=== PATIENT | female | born 1935 | race Caucasian/White ===

== ENCOUNTER 2016-12-10 13:43 | Observation (INO) ==
[2016-12-10] MEDS ORDERED: Acetaminophen 325 MG TABLET PO ONE (14:24)
--- NOTE | 2016-12-10 14:49 | Emergency Department Note ---
Disposition Clinical Impression: Leg pain, left, Inability to ambulate due to left hip Disposition: Admitted As Inpatient Condition: Good Referrals: Cathi Curran CNP [Primary Care Provider] - Forms: ED Satisfaction Letter Time of Disposition: 18:20 Lower Extremity Injury HPI - General Chief Complaint: ED Extremity Injury, Lower Stated Complaint: leg pain Time Seen by Provider: 12/10/16 13:50 Source: patient, family, EMS Mode of arrival: ambulatory Limitations: no limitations Nursing Notes Reviewed: Yes Vital Signs Reviewed: Yes - History of Present Illness HPI Narrative: History from daughter and patient. Patient indicates that she thinks that she had some pain one month ago after seeing the commodity supervisor. Apparently they clipped her toes. Patient thinks that she was moved into some positions that her left knee which is [id number] in her left hip could not handle and she has had pain since then. 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 Daughter states that evening she noticed that the left great toe was swollen. Daughter states that she thought that her mother had gout since the daughter gave her naproxen of her own Saturday and Saturday and prednisone Saturday and Saturday 15 mg. Patient did not improve. As a matter fact got worse. Daughter became concerned because she has had a DVT in the past contacted the primary physician who sent her here for a Doppler patient has not had any associated fevers, chilling, nausea, chest pain, or palpitations. She occasionally gets short of breath but it has not been significantly worse Injury location: Left hip, Left thigh, Left knee Onset (ago): unknown (No known injury or fall) Mechanism of Injury: unknown Place: home Pain Severity: moderate Improves with: rest Worsens with: weight bearing (Patient was unable to weight-bear at all today which is why [facility] was called to transport her), movement, palpation Associated symptoms: Reports: unable to bear weight Treatments prior to arrival: cold therapy, NSAIDS, other (Steroids) - Related Data Home Medications Medication Instructions Recorded Confirmed Unable To Obtain [Unable to Obtain] 04/16/16 04/16/16 Allergies Allergy/AdvReac Type Severity Reaction Status Date / Time Penicillins [PCN] Allergy Anaphylaxis Verified 04/16/16 19:43 Sulfa (Sulfonamide Allergy See Verified 04/16/16 19:43 Antibiotics) Comments All systems ED: reviewed and negative except as stated. Musculoskeletal: Reports: as per HPI, arthralgia Past Medical History - Past Medical History Medical history: Reports: hypertension, renal disease Psychiatric history: Reports: no psych history - Social History Smoking Status: Never smoker Alcohol use: Reports: none Drug use: Reports: none Physical Exam Constitutional: Patient is oriented to person, place, and time. Skin color is pink. Appears well hydrated, body habitus obese . Non toxic appearing. Head: Normocephalic and atraumatic. External ear exam normal Nose: Nose normal. Mouth/Throat: Uvula is midline, oropharynx is clear and moist and mucous membranes are normal. Eyes: Conjunctivae nl, extraocular motions and lids are normal. Pupils are equal , round, and reactive to light. Neck: Normal range of motion and phonation normal. Neck supple. Cardiovascular: Normal rate, regular rhythm, normal heart sounds. Pulmonary/Chest: No Respiratory distress. Respiratory Effort normal and breath sounds clear. Abdominal: Soft. Normal appearance and bowel sounds are normal. no tenderness, no masses, no guarding, no rebound Musculoskeletal: Good distal pulses. Soft compartments. Brisk cap refill. Extremities: Patient has tenderness to palpation diffusely over her left thigh left knee somewhat over her left hip but not well localized. Less so over her left ankle. Slightly tender over her left great toe. Left great toe is not erythematous or warm and there is very little swelling there There is no palpable cord or tenderness at the calf .Intact peripheral pulses. No significant distal Edema. Extremity skin color nl, Patient has extreme pain with any movement of her left leg. She is Pain with internal and external rotation at the hip. She can only flex her knee to about 15 degrees and it is extremely painful. Patient moans loudly with any movement of her left hip There is no swelling or erythema over the knee joint. Nontender over the ankle. Left foot is warm and capillary refill is quick. Dorsalis pedis pulses intact. Neurological: Patient is alert and oriented without evidence of obvious motor deficits Skin: Skin is warm, dry and intact. color is normal, cap refill is quick Psychiatric: Patient has normal mood and affect. Patient speech is normal and behavior is normal. Thought content normal. - General Limitations: no limitations General appearance: alert Course - Reevaluation(s) Reevaluation #1: Venous Doppler is available now and for this reason I have asked the nurses to hold off on the blood work and of ordered the Doppler to evaluate for VTE Time: 14:48 Reevaluation #2: Family states the patient cannot walk at all. Her daughter with whom she lives indicates that she has been able to walk with a walker until 3 days ago when this pain started. She states that she cannot take her home because she has no way to manage her because she cannot stand. This was tested at the bedside and the patient reports to much pain when she places any weight on the left leg. Plan will be for observation admission for therapy/rehabilitation Time: 16:52 Reevaluation #3: call again to dr Upton product management consultant hospitalist who has not responded to initial message one hr ago. Time: 17:55 - Consultations Consultation #1: Contacted Dr. Upton who called back. We discussed the patient's case and need for hospitalization. He agrees to accept the patient. We talked about orders which he would like me to enter admission orders as a courtesy. Specifically he requests [place] 5 325 one by mouth every 4-6, Solu-Medrol 125 initially and then 60 every 8 hours, Lovenox 30 units daily We talked about imaging and he requested a CT of the hip and requested that I order a CRP and ESR Time: 18:38 Vital Signs Temperature 98.2 F 12/10/16 13:51 Pulse Rate 60 12/10/16 13:51 Respiratory Rate 16 12/10/16 13:51 Blood Pressure 185/85 12/10/16 13:51 O2 Sat by Pulse Oximetry 98 12/10/16 13:51 Temperature 98.2 F 12/10/16 13:51 Pulse Rate 60 12/10/16 18:33 Respiratory Rate 18 12/10/16 18:33 Blood Pressure 138/101 12/10/16 18:33 O2 Sat by Pulse Oximetry 98 12/10/16 18:33 Oxygen Delivery Oxygen Delivery Room Air Extremity Injury, Lower - MDM Narrative Medical decision making narrative: pt cannot stand and severe pain - Medical Records Medical records reviewed: Yes I reviewed the patient's medical records. - Lab Data Lab results reviewed: Yes I reviewed the patient's lab results. Result diagrams: 12/10/16 17:00 12/10/16 17:00 Lab Results 12/10/16 12/10/16 12/10/16 Range/Units 17:00 17:00 17:00 WBC 6.1 (4.3-11.1) K/mcL RBC 3.89 (3.82-4.97) M/mcL Hgb 12.4 (11.5-15.4) g/dL Hct 36.4 (35.3-44.9) % MCV 93.6 (83.0-100.0) fL MCH 31.9 (28.0-33.3) pg MCHC 34.1 (31.6-35.5) g/dL RDW 13.8 (11.5-14.5) % Plt Count 156 (140-400) K/mcL MPV 11.5 (9.4-12.4) fL Immature Gran % 0.3 (0-4) % Seg Neutrophils % 66.1 % Lymphocytes % 24.1 % Monocytes % 8.6 % Eosinophils % 0.7 % Basophils % 0.2 % Neutrophils # 4.0 (1.6-8.9) K/mcL Lymphocytes # 1.5 (0.6-4.6) K/mcL Monocytes # 0.5 (0.0-1.3) K/mcL Eosinophils # 0.0 (0.0-0.6) K/mcL Basophils # 0.0 (0.0-0.2) K/mcL PT 11.4 (9.4-12.1) Seconds INR 1.1 Sodium 140 (136-145) mEq/L Potassium 3.8 (3.5-4.5) mEq/L Chloride 104 (98-109) mEq/L Carbon Dioxide 26 (19-29) mEq/L BUN 33 H (7-20) mg/dL Creatinine 1.07 (0.57-1.11) mg/dL Est GFR ( Amer) 59 L (> 60) Est GFR (Non-Af Amer) 49 L (> 60) BUN/Creatinine Ratio 31 H (6-26) Glucose 80 (70-99) mg/dL Calculated Osmolality 296 (280-300) Calcium 10.5 (8.6-10.8) mg/dL Total Bilirubin 0.6 (0.2-1.2) mg/dL AST 19 (5-34) Units/L ALT 13 (0-55) Units/L Alkaline Phosphatase 75 (38-126) Units/L Creatine Kinase 43 (29-168) Units/L Serum Total Protein 7.1 (6.0-8.3) g/dL Albumin 3.6 (3.5-5.0) g/dL Globulin 3.5 (2.4-3.5) g/dL Albumin/Globulin Ratio 1.0 L (1.1-2.2) - Radiology Data Radiology results reviewed: Yes I reviewed the patient's radiology results. Doppler tech tells me that the ultrasound of her left leg shows no evidence of DVT. Official report will be in the computer he says X-ray examination of the left hip per radiology impression "mild left hip osteoarthritis no acute fracture or dislocation pelvic ring is intact in the lower lumbar spine shows degenerative changes acute fracture X-ray of the knee shows impression no acute osseous abnormality, severe tricompartmental osteoarthritis. No acute fracture or dislocation present
[2016-12-10 17:05] LABS: Basophils % 0.2 %; Eosinophils % 0.7 %; Hematocrit 36.4 % (35.3-44.9); Hemoglobin 12.4 g/dL (11.5-15.4); Immature Granulocytes % 0.3 % (0-4); Lymphocytes # 1.5 K/mcL (0.6-4.6); Lymphocytes % 24.1 %; Mean Corpuscular HGB Conc 34.1 g/dL (31.6-35.5); Mean Corpuscular Hemoglobin 31.9 pg (28.0-33.3); Mean Corpuscular Volume 93.6 fL (83.0-100.0); Mean Platelet Volume 11.5 fL (9.4-12.4); Monocytes # 0.5 K/mcL (0.0-1.3); Monocytes % 8.6 %; Platelet Count 156 K/mcL (140-400); Red Blood Count 3.89 M/mcL (3.82-4.97); Red Cell Distribution Width 13.8 % (11.5-14.5); Segmented Neutrophils % 66.1 %
[2016-12-10 17:11] LABS: INR 1.1; Prothrombin Time 11.4 Seconds (9.4-12.1)
[2016-12-10 17:28] LABS: Albumin 3.6 g/dL (3.5-5.0); Bilirubin,Total 0.6 mg/dL (0.2-1.2); Calcium 10.5 mg/dL (8.6-10.8); Globulin 3.5 g/dL (2.4-3.5); Potassium 3.8 mEq/L (3.5-4.5); Total Protein 7.1 g/dL (6.0-8.3)
[2016-12-10] MEDS ORDERED: methylPREDNISolone 125 MG/2 ML VIAL IVP ONE (18:40)
[2016-12-10] MEDS ORDERED: *HR* HYDROcodone/Acet 5/325 mg TABLET PO PRN (21:41)
[2016-12-10] MEDS ORDERED: Naloxone 0.4 MG/ML INJ IVP PRN (21:41)
--- NOTE | 2016-12-10 22:35 | Venous Imaging Report ---
LE Venous Duplex Patient Name:Brooklyn Rivera Order Number:[id number] Procedure Date:12/10/2016 Date:4Age:81 yrs Gender:Female Location:[facility] ED Room #: 1 Dictionary Editor:Mattie Duque RVT Referring MD:Morelia Kirk MD:Robe Rodriguez MD , FACS Primary Indications:left lower extremity pain Secondary Indications: Risk Factors Yes/No Hx of DVT Yes Hx of Chemotherapy No Impressions: Left lower extremity: normal superficial and deep exam. Right lower extremity: normal contralateral exam. Recommendations: Critical findings reported to Physician in person by Mattie Duque RVT. Findings Venous Duplex Results: Right: Venous imaging of the lower extremity reveals full patency and normal vessel compressibility of the right common femoral. Doppler signals in the evaluated veins were normal. Left: Venous imaging of the lower extremity reveals full patency and normal vessel compressibility of the left distal iliac, left common femoral, left superficial femoral, left popliteal, left posterior tibial, left peroneal, left great saphenous and left lesser saphenous. Doppler signals in the evaluated veins were normal. Lower Extremity Venous Duplex Side Vein Compress Spontaneous Flow Augment Diameter (cm) Depth (cm) Left Distal Iliac Normal Yes Phasic Yes Left Common Femoral Normal Yes Phasic Yes Left Superficial Femoral Normal Yes Phasic Yes Left Popliteal Normal Yes Phasic Yes Left Posterior Tibial Normal Yes Phasic Yes Left Peroneal Normal Yes Phasic Yes Left Great Saphenous Normal Yes Phasic Yes Left Lesser Saphenous Normal Yes Phasic Yes Right Common Femoral Normal Yes Phasic Yes Updated by Robe Rodriguez MD, FACS on 12/10/2016 10:28:17 PM Robe Rodriguez MD electronically signed on 12/10/2016 10:28:34 PM with status of Final
[2016-12-11] MEDS: methylPREDNISolone 125 MG/2 ML VIAL IVP SCH ×5 (00:36→23:05)
[2016-12-11] MEDS: *HR* Enoxaparin 30 MG/0.3 ML SYRINGE SQ SCH (07:01)
--- NOTE | 2016-12-11 13:14 | Internal Med Progress Note ---
Date of Encounter: 12/11/16 Time of Encounter: 13:12 - Assessment and plan (1) Inability to ambulate due to left hip Current Visit: Yes Status: Acute Assessment and plan: Patient is feeling better today. But states that when she planted her foot bilateral upper leg into her hip. She may have been walking differently due to her recent podiatric surgery. I asked PT to consult regarding whether she is able to ambulate and maintain her balance and weight. - Time Spent With Patient less than 15 minutes - Subjective Interval history: Patient is better today. But she does have some pain when weightbearing L was unclear first if it is her feet in which she had a possible plan for removed and /or hip pain from degenerative joint disease. - Constitutional Vitals: Temp Pulse Resp BP Pulse Ox 97.6 F 62 16 163/80 94 12/11/16 11:08 12/11/16 11:08 12/11/16 11:08 12/11/16 11:08 12/11/16 11:08 - Head Head exam: Present: atraumatic, normal inspection, normocephalic - Neck Neck exam general surgery: Present: supple, trachea midline. Absent: lymphadenopathy - Respiratory Respiratory exam: Present: CTAB. Absent: accessory muscle use, rales, rhonchi, wheezes - Cardiovascular Cardiovascular exam: Present: RRR, +S1, +S2. Absent: diastolic murmur, gallop, rubs, systolic murmur Additional comments: Probably grade 2-3 over 4 systolic ejection murmur Internal Medicine: Result - Labs CBC & Chem 7: 12/10/16 17:00 12/10/16 17:00 Labs: Lab is stable - ABG Interpretation ABG results: PT/INR, D-dimer PT 11.4 Seconds (9.4-12.1) 12/10/16 17:00 Consult Discharge Plan - Plan Referrals: Cathi Curran GREENHOUSE FLORIST [Primary Care Provider] -
--- NOTE | 2016-12-11 13:18 | Internal Med History&Physical ---
Date of Encounter: 12/11/16 Time of Encounter: 13:15 Assessment and Plan (1) Inability to ambulate due to left hip Current visit: Yes Status: Acute (2) Leg pain, left Current visit: Yes Status: Acute Patient states the pains from referral with up to her hip joint. She does have degenerative changes on the x-rays. CT showed no fractures. Internal Medicine - H&P: HPI Chief complaint: Patient had some podiatric surgery and ever since then she has had pain las Admitted From: Emergency Dept History of present illness: Ms. Rivera is a 81 year old female . Patient is a little better than yesterday with steroid application and bed rest. PT consult is in. 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 - Constitutional Vitals: Temp Pulse Resp BP Pulse Ox 97.6 F 62 16 163/80 94 12/11/16 11:08 12/11/16 11:08 12/11/16 11:08 12/11/16 11:08 12/11/16 11:08 - Head Head exam: Present: atraumatic, normal inspection, normocephalic - Eye Eye exam: Present: PERRL, conjuntiva pink, sclera anicteric Pupils: Present: PERRL - Respiratory Respiratory exam: Present: CTAB. Absent: accessory muscle use, rales, rhonchi, wheezes - Cardiovascular Cardiovascular exam: Present: RRR, +S1, +S2. Absent: diastolic murmur, gallop, rubs, systolic murmur (Patient has a grade 2-3 systolic ejection murmur.) Internal Med - H&P Results - Labs CBC & Chem 7: 12/10/16 17:00 12/10/16 17:00
[2016-12-11 22:09] LABS: Uric Acid 6.6 mg/dL (2.6-6.0)
[2016-12-12] MEDS: methylPREDNISolone 125 MG/2 ML VIAL IVP SCH ×3 (06:00→17:35)
[2016-12-12] MEDS: *HR* Enoxaparin 30 MG/0.3 ML SYRINGE SQ SCH (06:01)
--- NOTE | 2016-12-12 14:53 | Internal Med Progress Note ---
Date of Encounter: 12/12/16 Time of Encounter: 14:51 - Assessment and plan (1) Inability to ambulate due to left hip Current Visit: Yes Status: Acute Assessment and plan: I will obtain is better patient is bearing weight. CT did not show any osseous problem was degenerative joint disease. (2) Leg pain, left Current Visit: Yes Status: Acute Assessment and plan: Pain is better and the inflammation is down. - Time Spent With Patient less than 15 minutes - Subjective Interval history: Patient is better today. But she does have some pain when weightbearing L was unclear first if it is her feet in which she had a possible plan for removed and /or hip pain from degenerative joint disease. Continuing to improve she walked to the hallway and back and that is a significant improvement. - Constitutional Vitals: Temp Pulse Resp BP Pulse Ox 98.6 F 91 18 173/86 97 12/12/16 11:53 12/12/16 11:53 12/12/16 11:53 12/12/16 11:53 12/12/16 11:53 - Head Head exam: Present: atraumatic, normal inspection, normocephalic - Neck Neck exam general surgery: Present: supple, trachea midline. Absent: lymphadenopathy - Respiratory Respiratory exam: Present: CTAB. Absent: accessory muscle use, rales, rhonchi, wheezes - Cardiovascular Cardiovascular exam: Present: RRR, +S1, +S2. Absent: diastolic murmur, gallop, rubs, systolic murmur Internal Medicine: Result - Labs CBC & Chem 7: 12/10/16 17:00 12/10/16 17:00 Labs: Lab is good slight increase in BUN is chronic. - ABG Interpretation ABG results: PT/INR, D-dimer PT 11.4 Seconds (9.4-12.1) 12/10/16 17:00 Consult Discharge Plan - Plan Referrals: Cathi Curran, ACID RECOVERY OPERATOR [Primary Care Provider] -
[2016-12-13] MEDS: methylPREDNISolone 125 MG/2 ML VIAL IVP SCH ×5 (01:46→23:01)
[2016-12-13] MEDS: *HR* Enoxaparin 30 MG/0.3 ML SYRINGE SQ SCH (06:16)
[2016-12-13] MEDS: Furosemide 20 MG TABLET PO SCH (12:56)
--- NOTE | 2016-12-13 21:19 | Physician Discharge Referral ---
- Diagnosis (1) Leg pain, left Status: Acute (2) Inability to ambulate due to left hip Priority: Secondary Status: Acute - Respiratory Orders None Smoking Cessation: Smoking cessation has been advised. For more information, call the [place] Tobacco Quit Line at 3-824-VZYV-NOW. - Diet/Nutrition Diet/Nutrition Orders: Regular - Activity Activity Orders: Walker Activity: List: as tolerated - Services Needed Following services are medically necessary services: Nursing, Home Health Aide, Physical Therapy - Transfer Medications Home Medications: Allopurinol [Zyloprim 100 MG] 100 mg PO DAILY 12/12/16 [History] Furosemide [Lasix] 20 mg PO DAILY 12/12/16 [History] Metoprolol [Lopressor] 25 mg PO DAILY 12/12/16 [History] Vit D3/Folic Acid/B2/B6/B12 [Folgard Tablet] 50,000 mg PO Q1W 12/12/16 [History] Allergies/Adverse Reactions: 3 Allergy/AdvReac Type Severity Reaction Status Date / Time Penicillins [PCN] Allergy Anaphylaxis Verified 04/16/16 19:43 Sulfa (Sulfonamide Allergy See Verified 04/16/16 19:43 Antibiotics) Comments Certification: Further, I certify that my clinical findings support that this patient is homebound (i.e. absences from home require considerable and taxing effort and are for medical reasons or congregational services or infrequently or short duration when for other reasons) because: Homebound Reason: Patient requires assistance of a person or device to safely leave home, Leaving home requires considerable and taxing effort due to condition Attestation: My signature below is to certify that this patient is under my care and that I, or nurse practitioner, or a physician's sales service assistant working with me, has a face-to -face encounter with this patient.
--- NOTE | 2016-12-13 21:21 | Discharge Summary ---
Date of Encounter: 12/13/16 Time of Encounter: 21:19 - Discharge Diagnosis (1) Leg pain, left Priority: Primary Status: Acute Comments: complains of pain severe in her feet she had some kind of surgery and treatment and since then had been having pain . She has hx of Gout . examination was unremarkable except for sensitivity to touch local pain on both feet and somewhat on her hip (2) Inability to ambulate due to left hip Priority: Secondary Status: Acute Comments: she also ahs some pain in her hips , Mild pain on rotation no fractures . pain is well controlled and stable - Discharge Medications Home Medications: Allopurinol [Zyloprim 100 MG] 100 mg PO DAILY 12/12/16 [History] Furosemide [Lasix] 20 mg PO DAILY 12/12/16 [History] Metoprolol [Lopressor] 25 mg PO DAILY 12/12/16 [History] Vit D3/Folic Acid/B2/B6/B12 [Folgard Tablet] 50,000 mg PO Q1W 12/12/16 [History] Allergies/Adverse Reactions: 3 Allergy/AdvReac Type Severity Reaction Status Date / Time Penicillins [PCN] Allergy Anaphylaxis Verified 04/16/16 19:43 Sulfa (Sulfonamide Allergy See Verified 04/16/16 19:43 Antibiotics) Comments Date of admission: 12/10/16 21:13 Primary care physician: Cathi Curran CNP Consults: 12/10/16 22:12 Consult to Kindergarten Tutor [CONS] Routine Reason for SW Consult: unable to bear wt left leg lives alone 12/11/16 12:11 Consult to Physical Therapy [CONS] Routine Comment: Evaluate, develop and implement POC Reason for Consult: pain upon ambulating - Patient Status Disposition: Home Health Service Functional capacity at discharge: uses cane/walker Overall status at discharge: patient is progressing back to baseline - Discharge Instructions Follow Up With: Cathi Curran CNP [Primary Care Provider] - - Diet and Activity Activity: ambulate only with your walker Diet: advance to your usual diet Hospital course: Ms. Rivera is a 81 year old female - Time Spent with Patient Total time spent providing and/or coordinating discharge services: - Constitutional Vitals: Temp Pulse Resp BP Pulse Ox 98.0 F 56 16 201/80 95 12/13/16 19:51 12/13/16 19:51 12/13/16 19:51 12/13/16 19:51 12/13/16 19:51 General appearance: Present: A&O X 3, pleasant, obese. Absent: no acute distress, severe distress, loss of weight - Eye Eye exam: Present: EOMI, PERRL. Absent: scleral icterus, conjuntiva pink Pupils: Present: PERRL - Neck Neck exam general surgery: Present: supple. Absent: nuchal rigidity - Respiratory Respiratory exam: Present: CTAB. Absent: respiratory distress, rhonchi, stridor , wheezes - Cardiovascular Cardiovascular exam: Present: RRR, +S1, +S2. Absent: irregular rhythm, JVD - GI/Abdominal GI/Abdominal exam: Present: normal bowel sounds, soft. Absent: tenderness Additional comments: obese - Extremities Exam Extremities exam: Present: pedal edema. Absent: tenderness Additional comments: local pain on both feet very sensitive to touch - Neurological Exam Neurological exam: Present: CN II-XII intact, oriented X3, strengths equal and symetr throughout. Absent: facial droop, speech deficit Additional comments: sensaroy examination was not done motor functions both upper equal but examination was limited .
[2016-12-14] MEDS: methylPREDNISolone 125 MG/2 ML VIAL IVP SCH ×2 (05:33→12:14)
[2016-12-14] MEDS: *HR* Enoxaparin 30 MG/0.3 ML SYRINGE SQ SCH (05:34)
[2016-12-14 07:47] VITALS: BP 189/74
[2016-12-14] MEDS: Furosemide 20 MG TABLET PO SCH (07:47)
[2016-12-14] MEDS ORDERED: VIT D3 PO SCH (09:00)
[2016-12-14] MEDS ORDERED: FOLIC ACID PO SCH (09:00)
[2016-12-14] MEDS ORDERED: B12 PO SCH (09:00)
[2016-12-14] MEDS ORDERED: B6 PO SCH (09:00)
[2016-12-14] MEDS ORDERED: B2 PO SCH (09:00)
[2016-12-14] MEDS ORDERED: FLUARIX QUAD 2017-18 36MOS UP/PF 0.5 ML SYRINGE IM ONE (12:32)
== END 2016-12-14 16:02 | disposition home health service (06) ==
LOC: EMEROOGRE 13:43 → INPGRE 13:43
PROVIDERS: ADMIT Internal Medicine; ATTEND Internal Medicine